=== PATIENT | male | born 1995 | race Caucasian/White ===

== ENCOUNTER 2017-04-14 14:14 | Emergency (ER) | payer MEDICAID, OTHER ==
[~2017-04-14] VITALS: Wt 67.0 kg
[~2017-04-14 14:14] MED LIST: ACET-915
[2017-04-14] MEDS ORDERED: LIDOCAINE 2% (MDV) 20 ML INJ INJ STA (14:33)
--- NOTE | 2017-04-14 14:52 | ERD ---
ER Documentation Chief Complaint Date/Time DATE: 04/14/17 TIME: 14:48 Chief Complaint LEFT ARM LACERATION AND L HIP LACERATION FROM BROKEN GLASS HPI 21-year-old female presents emergency department with multiple lacerations to the left forearm, as well as left hip and left hand after falling off a skateboard today. He states that he was writing and he was also holding a glass coke bottle that had shattered causing his lacerations. Patient does not recall his last tetanus shot. ROS All systems reviewed and are negative except as per history of present illness. Medications Home Meds Active Scripts Bacitracin* (Bacitracin Zinc Oint*) 28.35 Gm Oint, 1 APPLIC TOP BID, #1 TUB APPLI TO Prov:DU VEGA PA-C 04/14/17 Hydrocodone/Acetaminophen ([place] 5-325 Tablet) 1 Each Tablet, 1 TAB PO Q6H Y for PAIN, #10 TAB Prov:DU VEGA PA-C 04/14/17 Cephalexin* (Keflex*) 500 Mg Capsule, 500 MG PO QID for 7 Days, CAP Prov:DU VEGA PA-C 04/14/17 Reported Medications Acetaminophen* (Tylenol*) 325 Mg Tab 06/02/10 Allergies Allergies: Coded Allergies: No Known Drug Allergies (Verified Allergy, Mild, 06/02/10) PMhx/Soc History of Surgery: No Anesthesia Reaction: No Hx Neurological Disorder: No Hx Respiratory Disorders: No Hx Cardiac Disorders: No Hx Psychiatric Problems: No Hx Miscellaneous Medical Probl: No Hx Alcohol Use: No Hx Substance Use: No Hx Tobacco Use: No Smoking Status: Never smoker Physical Exam Vitals Vital Signs Date Time Temp Pulse Resp B/P Pulse Ox O2 Delivery O2 Flow Rate FiO2 04/14/17 14:16 98.8 85 20 139/75 98 Physical Exam General: Well-developed, well-nourished. The patient appears in no acute distress. HEENT: Head is normocephalic, atraumatic. No scleral icterus. Neck: Supple. Nontender. Lungs: Clear to auscultation. Normal air movement. Heart: Regular rate and rhythm. S1 and S2 are normal. No murmurs, gallops, or rubs. Abdomen: Nondistended. Extremities: Patient has full range of motion to the left wrist, no bony deformities, no snuffbox tenderness, there are multiple lacerations, there are 4 lacerations on the forearm. The distal medial portion has a 2 cm laceration, as well as in the medial aspect is a 4 cm laceration, and a laceration at the elbow that is 4 cm. Left hand fourth digit also has a laceration at the proximal phalanx. He is able to make a fist. Patient's left hip has a 2 cm laceration. Neurologic: Alert and oriented 3. No focal deficits. Normal speech and gait. Skin: Normal turgor. No rash or lesions. Results 24 hrs Current Medications Medications (Trade) Dose Ordered Sig/Shirin Route PRN Reason Start Time Stop Time Status Last Admin Dose Admin Diphtheria/ Tetanus/Acell Pertussis (Adacel) 0.5 ml ONCE ONCE IM 04/14/17 15:00 04/14/17 15:01 DC 04/14/17 14:40 Lidocaine (Xylocaine 2% (Mdv) 20 ml) 20 ml ONCE STAT INJ 04/14/17 14:33 04/14/17 14:35 DC Acetaminophen/ Hydrocodone Bitart ([place] (5/325)) 1 tab ONCE ONCE PO 04/14/17 15:00 04/14/17 15:01 DC 04/14/17 14:40 Cefazolin Sodium (Ancef) 1 gm ONCE ONCE IM 04/14/17 18:00 04/14/17 18:01 Procedures/MDM ED course: Patient was given a tetanus update. He received Ancef 1 g IM. He also received [place] for pain. #1 Laceration Repair by me: Patient was verbally consented Anesthesia: 1% lidocaine locally Location: proximal left forearm Tendon/Joint/Nerves: No injury Foreign body: None detected after copious irrigation and exploration Technique: Simple Interrupted Sutures x 2 using 4- 0 ethilon Complexity: No subcutaneous sutures/mucosal repair/ edge excision Post Closure Length: 2 cm #2 Laceration Repair by me: Patient was verbally consented Anesthesia: 1% lidocaine locally Location: Medial left forearm Tendon/Joint/Nerves: No injury Foreign body: None detected after copious irrigation and exploration Technique: Simple Interrupted Sutures x 4 using 4- 0 ethilon Complexity: No subcutaneous sutures/mucosal repair/ edge excision Post Closure Length: 4 cm #3 Laceration Repair by me: Patient was verbally consented Anesthesia: 1% lidocaine locally Location: medial left forearm Tendon/Joint/Nerves: No injury Foreign body: None detected after copious irrigation and exploration Technique: Simple Interrupted Sutures x2 using 4-0 ethilon Complexity: No subcutaneous sutures/mucosal repair/ edge excision Post Closure Length: 2 cm #4 Laceration Repair by me: Patient was verbally consented Anesthesia: 1% lidocaine locally Location: elbow Tendon/Joint/Nerves: No injury Foreign body: None detected after copious irrigation and exploration Technique: Simple Interrupted Sutures #6 using 4-0 ethilon Complexity: No subcutaneous sutures/mucosal repair/ edge excision Post Closure Length: 2 cm #5 Laceration Repair by me: Patient was verbally consented Anesthesia: 1% lidocaine locally Location: lateral left hip Tendon/Joint/Nerves: No injury Foreign body: None detected after copious irrigation and exploration Technique: Simple Interrupted Sutures x 3 using 4- 0 ethilon Complexity: No subcutaneous sutures/mucosal repair/ edge excision Post Closure Length: 4 cm #6 Laceration Repair by me: Patient was verbally consented Anesthesia: 1% lidocaine locally Location: left finger Tendon/Joint/Nerves: No injury Foreign body: None detected after copious irrigation and exploration Technique: . Dermabond Complexity: No subcutaneous sutures/mucosal repair/ edge excision Post Closure Length: 1 cm 48 hour wound check. Scar minimization instructions given. Medical decision m[age]-year-old male presents with multiple lacerations, he states he fell off a skateboard and at the time he was holding a glass coke bottle that had shattered. He comes in with multiple lacerations to left forearm, as well as left hip and left finger. Lacerations were repaired as documented. There was indication of 2 foreign bodies, there is resolution of the smaller one that was 0.2 cm, re-irrigation and exploration of the wound was done for the other foreign body that was read by the radiologist as being 0.6 cm. I have advised the patient, that there is a low risk of infection, however he will be given antibiotics for coverage. 4 sutures were placed at that laceration that is approximately 10 cm from the elbow. That is likely with a foreign body is, and I was asked him to keep an eye in the wound for signs of infection including redness, swelling, drainage or purulent discharge. He is to come back in 2 days for wound check, or follow-up with his primary care physician. Suture removal should be done in approximately a week. Departure Diagnosis: Primary Impression: Laceration Condition: Good DU VEGA PA-C Apr 14, 2017 14:52
[2017-04-14] MEDS ORDERED: HYDROCODONE/APAP (5/325) TAB PO ONE (15:00)
[2017-04-14] MEDS ORDERED: DIPHTH/TET/ACEL PERTUSS (ADULT) 0.5 ML VIAL IM ONE (15:00)
--- NOTE | 2017-04-14 15:36 | RADRPT ---
PROCEDURE: XR Left Forearm forearm CLINICAL INDICATION: Laceration from last TECHNIQUE: AP and lateral radiographs were submitted. COMPARISON: None FINDINGS: Osseous structures: appear well mineralized and intact with no fracture or osseous destruction evid ent. Joint spaces: are well maintained with no significant erosion or spurring evident. There is no sig nificant joint effusion Soft tissues: A 6 mm triangular shaped foreign body and more superiorly a 2 mm radiopaque foreign gonzalez dy or seen within the soft tissues dorsal medial to the proximal third of the left ulna. IMPRESSION: 1. Two radiopaque foreign bodies are seen within the soft tissues posterior medial to the proximal third of the left ulna suspicious for fragments of glass. 2. The osseous elements and joint spaces appear unremarkable. Physician Aide Date Time Electronically viewed and signed by Physician Aide on 04/14/2017 15:36 /
--- NOTE | 2017-04-14 15:38 | RADRPT ---
PROCEDURE: XR Left Hand CLINICAL INDICATION: Lacerations from the last of fourth digit and hypo thenar TECHNIQUE: PA, oblique, and lateral radiographs were submitted. COMPARISON: None FINDINGS: Osseous structures: appear well mineralized and intact with no fracture or destructive process iden tified. Joint spaces: are well maintained, with no significant spurring, erosion or joint effusion evident. Soft tissues: appear unremarkable. No radiopaque foreign body is identified. IMPRESSION: Unremarkable left hand with no radiopaque foreign body evident.. Physician Aide Date Time Electronically viewed and signed by Juan Gautam Physician on 04/14/2017 15:38 RH/
--- NOTE | 2017-04-14 16:39 | RADRPT ---
PROCEDURE: XR Left Forearm. CLINICAL INDICATION: Trauma. Left forearm pain. Foreign body assessment following. Lesion. TECHNIQUE: AP and lateral views of the left forearm were obtained. COMPARISON: Prior study done earlier the same day which demonstrated foreign bodies in the soft ti ssues. FINDINGS: There is no fracture or dislocation. A 0.6 cm triangular foreign body is present in the soft tissues of the proximal to mid forearm poste riorly as seen previously. A previously noted 0.2 cm foreign body in the soft tissues proximally is no longer visualized. There is no new radiopaque foreign body. Articular surfaces are intact. There is no lytic or blastic lesion. There is no radiopaque foreign body. IMPRESSION: 1. The 0.6 cm triangular foreign body in the soft tissues remains in position. 2. The 0.2 cm foreign body in the soft tissues visualized on the prior study is no longer present. 3. Otherwise unremarkable images of the left forearm. RPTAT: QQ .Zeb Alfred MD, MD Date Time Electronically viewed and signed by .Zeb Alfred MD, on 04/14/2017 16:39 .R/
[2017-04-14] MEDS ORDERED: CEPH-443 PO (17:36)
[2017-04-14] MEDS ORDERED: BACI28.34 TOP (17:36)
[2017-04-14] MEDS ORDERED: HYDR-906 PO (17:36)
[2017-04-14] MEDS ORDERED: CEFAZOLIN 1 GM INJ IM ONE (18:00)
== END 2017-04-14 17:56 | disposition home or self-care (01) ==
LOC: FTE 14:14
DX: S71.012A Laceration without foreign body, left hip, initial encounter (principal); S51.812A Laceration without foreign body of left forearm, initial encounter; S51.012A Laceration without foreign body of left elbow, initial encounter; S61.215A Laceration without foreign body of left ring finger without damage to nail, initial encounter; V00.131A Fall from skateboard, initial encounter; Y92.9 Unspecified place or not applicable; Z23 Encounter for immunization
CPT/HCPCS: 12005; 73090; 73130; 90471; 90715; 96372; J0690; Z7502; Z7610

== ENCOUNTER 2017-04-16 18:20 | Emergency (ER) | payer SELFPAY ==
[~2017-04-16] VITALS: Ht 177.8 cm; Wt 64.0 kg
[~2017-04-16 18:20] MED LIST changes: +BACI28.34 TOP; +CEPH-443 PO; +HYDR-906 PO
[2017-04-16 18:22] VITALS: Ht 177.8 cm; Wt 64.0 kg
[2017-04-17] MEDS ORDERED: MUPI22OI2 TOP (17:48)
== END 2017-04-16 19:05 | disposition left against medical advice (07) ==
LOC: FTE 18:20
DX: Z53.21 Procedure and treatment not carried out due to patient leaving prior to being seen by health care provider (principal)

== ENCOUNTER 2017-04-17 17:15 | Emergency (ER) | payer OTHER ==
[~2017-04-17] VITALS: Wt 61.4 kg
[2017-04-17] MEDS ORDERED: MUPI22OI2 TOP (17:48)
--- NOTE | 2017-04-17 17:59 | ERD ---
ER Documentation Chief Complaint Date/Time DATE: 04/17/17 TIME: 17:51 Chief Complaint wound recheck HPI 21-year-old male comes in for wound check for multiple lacerations that occurred 3 days ago, when he fell off a skateboard while holding a Coke bottle. Patient reports that it had shattered causing multiple lacerations, on the left upper extremity, left hand, as well as the left hip. He has been on antibiotics, and pain medication and states that he was doing fine. He describes minimal pain. He has not had any drainage. He denies fevers or chills. He denies paresthesias or weakness. ROS All systems reviewed and are negative except as per history of present illness. Medications Home Meds Active Scripts Mupirocin* (Bactroban*) 2% -22 Gram Oint...g., 1 APPLIC TOP BID for 7 Days, EA Prov:DU VEGA PA-C 04/17/17 Bacitracin* (Bacitracin Zinc Oint*) 28.35 Gm Oint, 1 APPLIC TOP BID, #1 TUB APPLI TO Prov:DU VEGA PA-C 04/14/17 Hydrocodone/Acetaminophen ([place] 5-325 Tablet) 1 Each Tablet, 1 TAB PO Q6H Y for PAIN, #10 TAB Prov:DU VEGA PA-C 04/14/17 Cephalexin* (Keflex*) 500 Mg Capsule, 500 MG PO QID for 7 Days, CAP Prov:DU VEGA PA-C 04/14/17 Reported Medications Acetaminophen* (Tylenol*) 325 Mg Tab 06/02/10 Allergies Allergies: Coded Allergies: No Known Drug Allergies (Verified Allergy, Mild, 04/17/17) PMhx/Soc Medical and Surgical Hx: pt denies Medical Hx, pt denies Surgical Hx History of Surgery: No Anesthesia Reaction: No Hx Neurological Disorder: No Hx Respiratory Disorders: No Hx Cardiac Disorders: No Hx Psychiatric Problems: No Hx Miscellaneous Medical Probl: No Hx Alcohol Use: No Hx Substance Use: No Hx Tobacco Use: No Smoking Status: Never smoker Physical Exam Vitals Vital Signs Date Time Temp Pulse Resp B/P Pulse Ox O2 Delivery O2 Flow Rate FiO2 04/17/17 17:29 98.0 83 20 114/56 98 Physical Exam General: Well-developed, well-nourished. The patient appears in no acute distress. HEENT: Head is normocephalic, atraumatic. No scleral icterus. Neck: Supple. Nontender. Lungs: Clear to auscultation. Normal air movement. Heart: Regular rate and rhythm. S1 and S2 are normal. No murmurs, gallops, or rubs. Abdomen: Nondistended. Extremities: Left upper extremity has multiple lacerations that are closed with sutures. The left fourth digit has a 1.5 cm laceration that is closed with Dermabond, no dehiscence, erythema or drainage. Medial left forearm, 4cm with 4 simple interrupted sutures, intact. No warmth or erythema or drainage Medial forearm, 2 cm, with 2 simple interrupted sutures, intact, no warmth or erythema or drainage Left elbow, 4cm, with 6 simple interrupted sutures are intact, there is slight erythema, no warmth or drainage, no fluctuance, no tenderness to palpation Left hip, 4 cm laceration with 3 simple interrupted sutures intact, no dehiscence, erythema, there is ecchymosis that is superficial. Neurologic: Alert and oriented 3. No focal deficits. Normal speech and gait. Skin: Normal turgor. No rash or lesions. Results 24 hrs Current Medications Medications (Trade) Dose Ordered Sig/Shirin Route PRN Reason Start Time Stop Time Status Last Admin Dose Admin Bacitracin (Bacitracin Oint (Ud)) 1 applic ONCE ONCE TOP 04/17/17 18:00 04/17/17 18:01 Procedures/MDM ED course: Hydrogen peroxide with normal saline was used to irrigate the left elbow, bacitracin and clean dressing were applied, other wounds were also covered with a new dressing. A left elbow was placed in a sling. Medical decision making: This 21-year-old male comes in with multiple lacerations from a fall, lacerations were caused from a "glass bottle. There is some possible glass that was seen on an x-ray it was about 10 cm away from the elbow. Lacerations were repaired and after multiple attempts to remove the glass, patient states that he was having too much pain, and states that he was having pain, it would not like to go further with the procedure. At that point laceration repair was done with space out sutures allow for the possible foreign body to be removed. At this point there are no signs of infection, abscess, dehiscence, cellulitis. Patient will be given information to follow- up with general surgery for reevaluation of the wound. Suture removal advised in 6 days. Departure Diagnosis: Primary Impression: Encounter for re-check of laceration wound Condition: Good Patient Instructions: Wound Check, Lac F/U (No Infection) Additional Instructions: SUTURE REMOVAL in 6 DAYS. GENERAL SURFACE GRINDER TENDER: YOU HAVE A MEDICAL CONDITION WHICH REQUIRES YOU TO SEE A SPECIALIST WITHIN THE NEXT 1-2 DAYS. PLEASE FOLLOW UP WITH YOUR PRIMARY PHYSICIAN FOR REFFERAL.IF YOU DO NOT HAVE A PRIMARY CARE PHYSICIAN AND/OR YOU CAN NOT AFFORD TO SEE A PHYSICIAN THE FOLLOWING RESOURCES HAVE BEEN SUPPLIED TO YOU. IT IS YOUR RESPONSIBILITY TO BE SEEN BY THE SPECIALIST DU VEGA PA-C Apr 17, 2017 17:59
[2017-04-17] MEDS ORDERED: BACITRACIN 0.9 GM OINT TOP ONE (18:00)
== END 2017-04-17 18:19 | disposition home or self-care (01) ==
LOC: FTE 17:15
DX: Z48.01 Encounter for change or removal of surgical wound dressing (principal)
CPT/HCPCS: 99283

== ENCOUNTER 2017-04-29 22:35 | Emergency (ER) | payer OTHER ==
[~2017-04-29] VITALS: Ht 172.7 cm; Wt 64.5 kg
[~2017-04-29 22:35] MED LIST changes: +MUPI22OI2 TOP
[2017-04-29 22:51] VITALS: Ht 172.7 cm; Wt 64.5 kg
--- NOTE | 2017-04-29 23:40 | ERD ---
ER Documentation Chief Complaint Date/Time DATE: 04/29/17 TIME: 23:37 Chief Complaint HERE 2 WKS AGO AFTER FALL W/ GLASS IN ARM. FOUND GLASS IN LT HIP. HPI 21-year-old male presents here in emergency department for a foreign body in the left hip area, patient had a glass broke into his body 2 weeks ago, like there is some glass poking out of the laceration wound was repaired in the left hip area. Patient's complaining of some pain, sharp pain 4/10 scale, is worse upon touching the area. ROS All systems reviewed and are negative except as per history of present illness. Medications Home Meds Active Scripts Mupirocin* (Bactroban*) 2% -22 Gram Oint...g., 1 APPLIC TOP BID for 7 Days, EA Prov:DU VEGA PA-C 04/17/17 Bacitracin* (Bacitracin Zinc Oint*) 28.35 Gm Oint, 1 APPLIC TOP BID, #1 TUB APPLI TO Prov:DU VEGA PA-C 04/14/17 Hydrocodone/Acetaminophen ([place] 5-325 Tablet) 1 Each Tablet, 1 TAB PO Q6H Y for PAIN, #10 TAB Prov:DU VEGA PA-C 04/14/17 Cephalexin* (Keflex*) 500 Mg Capsule, 500 MG PO QID for 7 Days, CAP Prov:DU VEGA PA-C 04/14/17 Reported Medications Acetaminophen* (Tylenol*) 325 Mg Tab 06/02/10 Allergies Allergies: Coded Allergies: No Known Drug Allergies (Verified Allergy, Mild, 04/17/17) PMhx/Soc Medical and Surgical Hx: pt denies Medical Hx, pt denies Surgical Hx History of Surgery: No Anesthesia Reaction: No Hx Neurological Disorder: No Hx Respiratory Disorders: No Hx Cardiac Disorders: No Hx Psychiatric Problems: No Hx Miscellaneous Medical Probl: No Hx Alcohol Use: No Hx Substance Use: No Hx Tobacco Use: No Smoking Status: Never smoker FmHx Family History: No coronary disease, No diabetes, No other Physical Exam Vitals Vital Signs Date Time Temp Pulse Resp B/P Pulse Ox O2 Delivery O2 Flow Rate FiO2 04/29/17 22:51 98.5 78 16 109/57 97 Physical Exam GENERAL: The patient is well developed and appropriate for usual state of health, in no apparent distress. CHEST: Clear to auscultation bilaterally. There are no rales, wheezes or rhonchi. HEART: Regular rate and rhythm. No murmurs, clicks, rubs or gallops. No S3 or S4. ABDOMEN: Soft, nontender and nondistended. Good bowel sounds. No rebound or guarding. No gross peritonitis. No gross organomegaly or masses. No Alicea sign or McBurney point tenderness. BACK: No midline or flank tenderness. EXTREMITIES: Equal pulses bilaterally. There is no peripheral clubbing, cyanosis or edema. No focal swelling or erythema. Full range of motion. Grossly neurovascularly intact. NEURO: Alert and oriented. Cranial nerves 2-12 intact. Motor strength in all 4 extremities with 5/5 strength. Sensation grossly intact. Normal speech and gait. SKIN: Noted healing laceration wound the left hip area with palpable possible foreign body on the left hip wound. Other lacerations were healing well. There is no apparent rash or petechia. The skin is warm and dry. HEMATOLOGIC AND LYMPHATIC: There is no evidence of excessive bruising or lymphedema. No gross cervical, axillary, or inguinal lymphadenopathy. Results 24 hrs Current Medications Medications (Trade) Dose Ordered Sig/Shirin Route PRN Reason Start Time Stop Time Status Last Admin Dose Admin Lidocaine (Xylocaine 2% (Mdv) 20 ml) 2 ml ONCE ONCE INJ 04/30/17 02:30 04/30/17 02:31 DC PROCEDURE: XR Hip. CLINICAL INDICATION: Pain. TECHNIQUE: Two views of the left hip. COMPARISON: None available. FINDINGS: No fracture or dislocation is identified. The joint spaces are preserved. There is no significant soft tissue swelling. IMPRESSION: 1. No fracture or dislocation of the left hip. RPTAT: HTAR .Celestine Kimball MD, Date Time Electronically viewed and signed by .Celestine Kimball MD, on 04/30/2017 01:11 .R/ CC: WESLEY CORBIN [employer] OFFICER Procedures/MDM Procedure note: After patient's verbal consent, 2% lidocaine was used to anesthetize the affected area where the sharp object was palpable, afterwards, an incision was done to try to the move the foreign body, a glass foreign body approximately 0.8 cm x 0.3 cm x 0.8 cm was removed from the skin, patient tolerated procedure well, the wound was closed with Steri-Strips. Patient wound was well approximated. Medical decision-making: There was a foreign body left on the patient's skin, this was removed without any difficulty. Patient was given antibiotics, Bactrim to prevent infection, patient was advised to return to emergency department for any worsening symptoms. Patient was also advised to return if there is more foreign body palpable in the body. Patient was advised to follow-up with primary care doctor in 2-3 days for wound check. Patient is advised to return to emergency department for any worsening symptoms. Disposition: Home. Stable. Departure Diagnosis: Primary Impression: Retained foreign body Condition: Stable Patient Instructions: Foreign Body, Soft Tissue (Removed) WESLEY CORBIN NP Apr 29, 2017 23:40
--- NOTE | 2017-04-30 01:12 | RADRPT ---
PROCEDURE: XR Hip. CLINICAL INDICATION: Pain. TECHNIQUE: Two views of the left hip. COMPARISON: None available. FINDINGS: No fracture or dislocation is identified. The joint spaces are preserved. There is no significant soft tissue swelling. IMPRESSION: 1. No fracture or dislocation of the left hip. RPTAT: HTAR .Celestine Kimball MD, MD Date Time Electronically viewed and signed by .Celestine Kimball MD, on 04/30/2017 01:11 .R/
[2017-04-30] MEDS ORDERED: LIDOCAINE 2% (MDV) 20 ML INJ INJ ONE (02:30)
[2017-04-30] MEDS ORDERED: SULF1TAB31 PO (03:04)
[2017-04-30] MEDS ORDERED: IBUP-1542 PO (03:04)
== END 2017-04-30 03:04 | disposition home or self-care (01) ==
LOC: FTE 22:35
DX: S71.022A Laceration with foreign body, left hip, initial encounter (principal); W25.XXXA Contact with sharp glass, initial encounter; Y92.9 Unspecified place or not applicable
CPT/HCPCS: 10120; 73510; Z7610